=== PATIENT | female | born 1955 | race Caucasian/White ===

== ENCOUNTER 2017-12-01 09:07 | Emergency (ER) | payer BC, OTHER ==
[~2017-12-01] VITALS: Ht 172.7 cm; Wt 72.0 kg
[~2017-12-01 09:07] MED LIST: ADVA250A INH; ALTA1.256 PO; EFFE37.5 PO; IBUP800T23 PO; MONT10TA2 PO; OMPR20CCR PO; PRAV20TA PO; ROBA750T3 PO; VENTAER INH
[2017-12-01 09:20] VITALS: BP 197/100; PULSE 77; RESP 16; TEMP 98.4; O2SAT 99
--- NOTE | 2017-12-01 09:41 | PD ---
HPI Chief Complaint: Dizziness Time Seen by Provider: 09:26 Travel History International Travel<30 days: No Contact w/Intl Traveler<30days: No Traveled to known affect area: No History of Present Illness HPI 62-year-old female complains of headache, dizziness and elevated blood pressure. Patient has history hypertension. Patient states that she started having dizziness headache yesterday. Patient states that the dizziness is worse with head movement. Patient denies any visual change. Patient denies any neck pain. Patient denies any chest pain or shortness of breath. Patient denies abdominal pain. Patient denies any nausea vomiting diarrhea. Patient denies any recent head injury. Patient states that headache is aching headache diffuse over the head. Patient has history hypertension has been taking medication as directed. Patient states that her blood pressure has been elevated this morning. Patient went to the urgent care center and was referred to ED for evaluation. PFSH Past Medical History Asthma: Yes Anxiety: Yes Depression: Yes Cancer: Yes (BREAST) High Cholesterol: Yes Diminished Hearing: No GERD: Yes Hypertension: Yes Menopausal: Yes : 3 Para: 2 Miscarriage: 1 Past Surgical History Section: Yes (X 2) Mastectomy: Yes (RIGHT SIDE. ) Social History Alcohol Use: Yes (2 DRINKS PER MONTH) Tobacco Use: No Substance Use: No Allergies-Medications (Allergen,Severity, Reaction): Coded Allergies: metoclopramide (Unverified Allergy, Intermediate, 12/01/17) prochlorperazine (Unverified Adverse Reaction, Severe, Tachycardia, ) Reported Meds & Prescriptions Reported Meds & Active Scripts Active Reported Metformin (Metformin HCl) 500 Mg Tab 500 Mg PO DAILY With a meal Effexor (Venlafaxine HCl) 37.5 Mg Tab 37.5 Mg PO DAILY Ramipril 5 Mg Cap 5 Mg PO DAILY Atorvastatin (Atorvastatin Calcium) 10 Mg Tab 10 Mg PO HS Omeprazole 20 Mg Tab 20 Mg PO DAILY Singulair (Montelukast Sodium) 10 Mg Tab 10 Mg PO HS Ventolin Hfa 18 GM Inh (Albuterol Sulfate) 90 Mcg/Act Aer 1 Puff INH Q4H PRN Review of Systems General / Constitutional: No: Fever Eyes: No: Visual changes HENT: Positive: Headaches, Lightheadedness Cardiovascular: No: Chest Pain or Discomfort Respiratory: No: Shortness of Breath Gastrointestinal: No: Abdominal Pain Genitourinary: No: Dysuria Musculoskeletal: No: Pain Skin: No Rash Neurologic: No: Weakness Psychiatric: No: Depression Endocrine: No: Polydipsia Hematologic/Lymphatic: No: Easy Bruising Physical Exam Narrative GENERAL: Well-nourished, well-developed patient. SKIN: Focused skin assessment warm/dry. HEAD: Normocephalic. EYES: No scleral icterus. No injection or drainage. NECK: Supple, trachea midline. No JVD or lymphadenopathy. CARDIOVASCULAR: Regular rate and rhythm without murmurs, gallops, or rubs. RESPIRATORY: Breath sounds equal bilaterally. No accessory muscle use. GASTROINTESTINAL: Abdomen soft, non-tender, nondistended. MUSCULOSKELETAL: No cyanosis, or edema. BACK: Nontender without obvious deformity. No CVA tenderness. Neurologic exam: Patient's awake and alert oriented 3. No obvious focal neurological deficit. Data Data Last Documented VS Vital Signs Date Time Temp Pulse Resp B/P (MAP) Pulse Ox O2 Delivery O2 Flow Rate FiO2 12/01/17 10:16 96 16 156/78 (104) 97 12/01/17 09:20 98.4 Orders Orders Complete Blood Count With Diff (12/01/17 09:35) Basic Metabolic Panel (Bmp) (12/01/17 09:35) Ct Brain W/O Iv Contrast(Rout) (12/01/17 09:35) Iv Access Insert/Monitor (12/01/17 09:35) Ecg Monitoring (12/01/17 09:35) Oximetry (12/01/17 09:35) Hydralazine Inj (Apresoline Inj) (12/01/17 09:45) Meclizine (Antivert) (12/01/17 09:45) Labs Laboratory Tests Test 12/01/17 09:40 White Blood Count 7.8 TH/MM3 Red Blood Count 4.56 MIL/MM3 Hemoglobin 14.8 GM/DL Hematocrit 42.5 % Mean Corpuscular Volume 93.1 FL Mean Corpuscular Hemoglobin 32.4 PG Mean Corpuscular Hemoglobin Concent 34.8 % Red Cell Distribution Width 12.6 % Platelet Count 310 TH/MM3 Mean Platelet Volume 7.6 FL Neutrophils (%) (Auto) 70.3 % Lymphocytes (%) (Auto) 24.1 % Monocytes (%) (Auto) 4.2 % Eosinophils (%) (Auto) 1.1 % Basophils (%) (Auto) 0.3 % Neutrophils # (Auto) 5.5 TH/MM3 Lymphocytes # (Auto) 1.9 TH/MM3 Monocytes # (Auto) 0.3 TH/MM3 Eosinophils # (Auto) 0.1 TH/MM3 Basophils # (Auto) 0.0 TH/MM3 CBC Comment DIFF FINAL Differential Comment Blood Urea Nitrogen 12 MG/DL Creatinine 0.68 MG/DL Random Glucose 230 MG/DL Calcium Level 9.7 MG/DL Sodium Level 139 MEQ/L Potassium Level 3.9 MEQ/L Chloride Level 105 MEQ/L Carbon Dioxide Level 27.8 MEQ/L Anion Gap 6 MEQ/L Estimat Glomerular Filtration Rate 88 ML/MIN MDM Medical Decision Making Medical Screen Exam Complete: Yes Emergency Medical Condition: Yes Interpretation(s) Last Impressions Head CT 12/01/17 0935 Signed Impressions: Service Date/Time: Friday, December 01, 2017 09:47 - CONCLUSION: Tiny bilateral basal ganglial lacunar infarcts. Leonid Carl MD 10:34 AM. CBC within normal limit. BMP within normal limit. Glucose 230. Differential Diagnosis Differential diagnosis including tension headache, cluster headache, migraine headache, vertigo, electrolyte imbalance, uncontrolled hypertension, hypertensive emergency, hypertensive crisis.. Narrative Course 62-year-old female with headache, dizziness, elevated blood pressure. Hydralazine 10 mg IV. Meclizine 25 mg by mouth. Diagnosis Primary Impression: Uncontrolled hypertension Additional Impressions: Acute onset of severe vertigo Cephalgia Qualified Codes: R51 - Headache Patient Instructions: General Instructions Additional Instructions: Increase metformin to 500 mg twice a day. Amlodipine as directed. Follow-up with personal physician. Meclizine as needed for dizziness. Return if worse. Med/Other Pt SpecificInfo: Prescription(s) given Scripts Metformin (Metformin) 500 Mg Tab 500 MG PO BIDPC for Blood Sugar Management, #60 TAB 0 Refills Prov: Arnulfo Bailey MD 12/01/17 Meclizine (Meclizine) 25 Mg Tab 25 MG PO TID Y for VERTIGO, #21 TAB 0 Refills Prov: Arnulfo Bailey MD 12/01/17 Amlodipine (Amlodipine) 5 Mg Tab 5 MG PO DAILY for Blood Pressure Management, #30 TAB 0 Refills Prov: Arnulfo Bailey MD 12/01/17 Disposition: 01 DISCHARGE HOME Condition: Stable Arnulfo Bailey MD Dec 01, 2017 09:41
[2017-12-01] MEDS ORDERED: hydrALAZINE HCL 20 MG/ML VIAL IV PUSH ONE (09:45)
[2017-12-01] MEDS ORDERED: MECLIZINE HCL 25 MG TAB PO ONE (09:45)
[2017-12-01 09:47] LABS: AUTOMATED NEUTROPHIL # 5.5 TH/MM3 (1.8-7.7); BASOPHIL % 0.3 % (0.0-2.0); EOSINOPHIL # 0.1 TH/MM3 (0-0.4); EOSINOPHIL % 1.1 % (0.0-4.0); HEMATOCRIT 42.5 % (35.0-46.0); HEMOGLOBIN 14.8 GM/DL (11.6-15.3); LYMPH % 24.1 % (9.0-44.0); LYMPHOCYTE # 1.9 TH/MM3 (1.0-4.8); MEAN CELL VOLUME 93.1 FL (80.0-100.0); MEAN CORPUSCULAR HEMOGLOBIN 32.4 PG (27.0-34.0); MEAN CORPUSCULAR HGB CONC 34.8 % (32.0-36.0); MEAN PLATELET VOLUME 7.6 FL (7.0-11.0); MONO % 4.2 % (0.0-8.0); MONOCYTE # 0.3 TH/MM3 (0-0.9); NEUT % 70.3 % (16.0-70.0); PLATELET COUNT 310 TH/MM3 (150-450); RED BLOOD COUNT 4.56 MIL/MM3 (4.00-5.30); RED CELL DISTRIBUTION WIDTH 12.6 % (11.6-17.2); WHITE BLOOD COUNT 7.8 TH/MM3 (4.0-11.0)
[2017-12-01 10:01] VITALS: BP 193/91; PULSE 95; RESP 16; O2SAT 99
[2017-12-01] MEDS ORDERED: VENL37.5 PO (10:07)
[2017-12-01] MEDS ORDERED: VENTAER INH (10:07)
[2017-12-01] MEDS ORDERED: METF500T PO ×2 (10:07→10:42)
[2017-12-01] MEDS ORDERED: MONT10TA2 PO (10:07)
[2017-12-01] MEDS ORDERED: OMEP20TA93 PO (10:07)
[2017-12-01] MEDS ORDERED: ATOR10TA15 PO (10:07)
[2017-12-01] MEDS ORDERED: RAMI5CAP PO (10:07)
--- NOTE | 2017-12-01 10:09 | RADRPT ---
EXAM DATE/TIME: 12/01/2017 09:47 [facility] COMPARISON: No previous studies available for comparison. INDICATIONS : Cephalgia. Dizziness. RADIATION DOSE: 61.33 CTDIvol (mGy) MEDICAL HISTORY : Gastroesophageal reflux disease. Carcinoma, breast. Hypertension. SURGICAL HISTORY : Mastectomy, right. section. ENCOUNTER: Initial ACUITY: 1 day PAIN SCALE: 7/10 LOCATION: cranial TECHNIQUE: Multiple contiguous axial images were obtained of the head. Using automated exposure control and adj ustment of the mA and/or kV according to patient size, radiation dose was kept as low as reasonably a chievable to obtain optimal diagnostic quality images. DICOM format image data is available electro nically for review and comparison. FINDINGS: There are tiny hypodensities in the basal ganglia bilaterally consistent with lacunar infarcts of und etermined age however likely old. We have no comparison exams. There is no evidence of intracranial m ass or hemorrhage. The ventricles are symmetric and normal. The brainstem and posterior fossa structu res are normal. CONCLUSION: Tiny bilateral basal ganglial lacunar infarcts. Leonid Carl MD on December 01, 2017 at 10:06 Board Certified Radiologist. This report was verified electronically.
[2017-12-01 10:16] VITALS: BP 156/78; PULSE 96; RESP 16; O2SAT 97
[2017-12-01 10:20] LABS: CALCIUM 9.7 MG/DL (8.5-10.1)
[2017-12-01 10:21] LABS: BICARBONATE 27.8 MEQ/L (21.0-32.0)
[2017-12-01 10:24] LABS: CREATININE 0.68 MG/DL (0.50-1.00)
[2017-12-01] MEDS ORDERED: MECL-62 PO (10:42)
[2017-12-01] MEDS ORDERED: AMLO5TAB2 PO (10:42)
[2017-12-01 10:46] VITALS: BP 125/76
== END 2017-12-01 11:06 | disposition home or self-care (01) ==
LOC: PHED 09:07
DX: I10 Essential (primary) hypertension (principal); R42 Dizziness and giddiness; R51 Headache; J45.909 Unspecified asthma, uncomplicated; E78.00 Pure hypercholesterolemia, unspecified; F32.9 Major depressive disorder, single episode, unspecified; Z85.3 Personal history of malignant neoplasm of breast; Z88.8 Allergy status to other drugs, medicaments and biological substances
CPT/HCPCS: 70450; 80048; 85025; 96374; 99284; J0360